=== PATIENT | male | born 1975 | race Two or more races ===

== ENCOUNTER → 2019-09-06 10:49 | Outpatient (CLI) | payer OTHER ==
--- NOTE | 2019-09-07 08:49 | ST ---
PATIENT:SITA VALLEJO MEDICAL RECORD: [id number] SEX: M LOCATION:[facility] ORDER #: ADMISSION DATE: 09/06/19 AGE OF PATIENT: 44 REFERRING PHYSICIAN: INTERPRETING PHYSICIAN: TRIXIE ALDRICH MD DATE OF SERVICE: 09/06/2019 PROCEDURE: Treadmill stress test. TECHNIQUE: Baseline ECG is normal. Exercise for 10 minutes on Emanuel protocol. Maximum heart rate 168 beats per minute, greater than 85% max predicted. No ECG changes of ischemia. No symptoms of ischemia. Normal blood pressure response to exercise. No arrhythmias noted. Good exercise tolerance for age. TRANSINT:[id number] Voice Confirmation ID: [id number] DOCUMENT ID: [id number] TRIXIE ALDRICH MD at 0849 CC: [id number] DICTATION DATE: 09/06/19 1244 FEED PREPARATION OPERATOR: 09/06/19 1641 DEP CLI 09/06/19 [id number] [place] [id number]
== END | disposition home or self-care (01) ==
LOC: D.HCCARDIO 10:49
PROVIDERS: ATTEND Internal Medicine Interventional Cardiology
DX: R09.89 Other specified symptoms and signs involving the circulatory and respiratory systems (principal); I20.9 Angina pectoris, unspecified